=== PATIENT | male | born 1965 | race African-American/Black ===

== ENCOUNTER 2019-04-29 00:40 | Emergency (ER) | payer SELFPAY ==
[~2019-04-29] VITALS: Ht 167.6 cm; Wt 97.0 kg
[2019-04-29 03:00] VITALS: BP 138/101
[2019-04-29] MEDS ORDERED: IBUPROFEN 800MG TABLET PO ONE (04:00)
[2019-04-29] MEDS ORDERED: ACETAMINOPHEN WITH CODEINE 300/30MG TABLET PO ONE (05:45)
== END 2019-04-29 06:37 | disposition home or self-care (01) ==
LOC: ER 00:40
DX: M79.605 Pain in left leg (principal); M79.604 Pain in right leg; M25.532 Pain in left wrist; I10 Essential (primary) hypertension
CPT/HCPCS: 73110; 73562; 73590; 99284